=== PATIENT | female | born 1965 | race Caucasian/White ===

== ENCOUNTER → 2017-05-30 | Outpatient (CLI) | payer BC ==
[~2017-05-30] MED LIST: ALPR0.25 PO
--- NOTE | 2017-05-30 18:19 | RAD ---
HIP BILATERAL WITH PELVIS Clinical Indication: BILATERAL HIP PAIN FOR SEVERAL MONTHS Comparison: None. Findings: No acute fracture or malalignment. Mild bilateral hip arthrosis. Surgical clips within the pelvis. Moderate colonic stool. IMPRESSION: 1. No acute fracture or malalignment. 2. Mild bilateral hip arthrosis.
== END | disposition home or self-care (01) ==
LOC: DXRADRC 10:56
PROVIDERS: ATTEND Physician Assistant Medical
DX: M16.0 Bilateral primary osteoarthritis of hip (principal); M25.552 Pain in left hip
CPT/HCPCS: 73521

== ENCOUNTER → 2018-07-07 | Outpatient (CLI) | payer BC | END | disposition home or self-care (01) | LOC: SURG 12:10 | PROVIDERS: ATTEND Anesthesiology Pain Medicine | DX: M16.0 Bilateral primary osteoarthritis of hip (principal); Z87.442 Personal history of urinary calculi | CPT/HCPCS: 99203 ==

== ENCOUNTER → 2018-12-05 | Outpatient (CLI) | payer BC ==
--- NOTE | 2018-12-05 15:51 | CARD ---
MR#: [id number] Date of Study: 12/05/2018 Ordering Physician: CRYSTAL DOBSON, Referring Physician: CRYSTAL DOBSON Tech: Umm Hanks RDCS APPROVED REPORT EXAM: Two-dimensional and M-mode echocardiogram with Doppler and color Doppler. INDICATION Palpitations 2D DIMENSIONS RVDd2.7 (2.9-3.5cm)Left Atrium(2D)3.5 (1.6-4.0cm) IVSd0.7 (0.7-1.1cm)Aortic Root(2D)2.6 (2.0-3.7cm) LVDd4.8 (3.9-5.9cm)LVOT Diameter1.9 (1.8-2.4cm) PWd0.7 (0.7-1.1cm)LVDs2.8 (2.5-4.0cm) FS (%) 30.0 %SV77.2 ml LVEF(%)60.0 (>50%) Aortic Valve AoV Peak Roman.151.7cm/sAoV VTI30.6cm AO Peak GR.9.2mmHgLVOT Peak Roman.148.7cm/s LVOT VTI 28.55cmAO Mean GR.4mmHg JATINDER (VMAX)2.48gt6MWI (VTI)2.53cm2 Mitral Valve MV E Awnkeftw60.5cm/sMV DECEL [id number] MV A Zcxjaccz01.1cm/sE/A Ratio1.0 Tricuspid Valve TR P. Ikwmjnux187ap/sRAP TUXCSUIS9yvEo TR Peak Gr.85znBiILCH81xdLl Pulmonary Vein S1 Dhstgvha39.6cm/sD2 Vbpyvmzc79.6cm/s LEFT VENTRICLE The left ventricle is normal size. There is normal left ventricular wall thickness. The left ventricu lar systolic function is normal.. The Ejection Fraction is 55-60%. There is normal LV segmental wall motion. RIGHT VENTRICLE The right ventricle is normal size. The right ventricular systolic function is normal. ATRIA The left atrium size is normal. The right atrium size is normal. The interatrial septum is intact wit h no evidence for an atrial septal defect or patent foramen ovale as noted on 2-D or Doppler imaging. AORTIC VALVE The aortic valve is normal in structure and function. Doppler and Color Flow revealed no significant aortic regurgitation. There is no significant aortic valvular stenosis. MITRAL VALVE The mitral valve is normal in structure and function. There is no evidence of mitral valve prolapse. There is no mitral valve stenosis. Doppler and Color-flow revealed trace mitral regurgitation. TRICUSPID VALVE The tricuspid valve is normal in structure and function. Doppler and Color Flow revealed trace to mil d tricuspid regurgitation. There is mild pulmonary hypertension. The PA pressure was estimated at 33 mmHg. There is no tricuspid valve stenosis. PULMONIC VALVE The pulmonary valve is normal in structure and function. Doppler and Color Flow revealed mild pulmoni c valvular regurgitation. There is no pulmonic valvular stenosis. GREAT VESSELS The aortic root is normal in size. The ascending aorta is normal in size. The IVC is normal in size a nd collapses >50% with inspiration. PERICARDIAL EFFUSION There is no evidence of significant pericardial effusion. Critical Notification Critical Value: No <Conclusion> The left ventricular systolic function is normal.. The Ejection Fraction is 55-60%. There is normal LV segmental wall motion. Trace mitral regurgitation. Trace to mild tricuspid regurgitation. The PA pressure was estimated at 33 mmHg. There is no evidence of significant pericardial effusion. Signed by : Jimmy Leos, Electronically Approved : 12/05/2018 15:49:13
== END | disposition home or self-care (01) ==
LOC: ECHO 13:58
PROVIDERS: ATTEND Physician Assistant Medical
DX: I37.1 Nonrheumatic pulmonary valve insufficiency (principal); I27.20 Pulmonary hypertension, unspecified
CPT/HCPCS: 93306

== ENCOUNTER → 2020-12-29 | Outpatient (CLI) | payer OTHER ==
--- NOTE | 2020-12-29 15:54 | RAD ---
EXAM: 3 Views Left Shoulder DATE: 12/29/2020 11:20 AM INDICATION: Reason: LEFT SHOULDER PAIN / Spl. Instructions: / History: COMPARISON: No Prior FINDINGS: There is no evidence for acute fracture or dislocation. AC joint is congruent. Humeral head is not hi gh riding. IMPRESSION: 1. No acute fracture or dislocation. Electronically signed by: Malik Sofia MD (12/29/2020 3:52 PM) [id number]
== END ==
LOC: DXRAD 09:59
PROVIDERS: ATTEND Physician Assistant Medical
DX: M25.512 Pain in left shoulder (principal)
CPT/HCPCS: 73030